=== PATIENT | male | born 1965 | race Caucasian/White ===

== ENCOUNTER → 2022-05-30 | Outpatient (CLI) | payer SELFPAY ==
--- NOTE | 2022-05-30 14:16 | ECHOD_ITS ---
Reason For Study: AFIB Procedure This was a 2D Doppler, Color Flow transthoracic echocardiogram. Exam performed in department. Left Ventricle Normal LV size. Left ventricular systolic function is normal. The estimated ejection fraction is 55 %. Normal diastology for age. No regional wall motion abnormalities noted. Right Ventricle Normal RV size. Normal systolic function. Atria Normal left atrium. Normal right atrium. Mitral Valve Bileaflet diffuse mitral valve thickening. There is mild to moderate mitral annular calcification. Mild (1+) eccentric mitral valve insufficiency. Tricuspid Valve Normal tricuspid valve. Mild tricuspid valve insufficiency. Pulmonary artery systolic pressure is 22 mmHg. Aortic Valve Trisinus/trileaflet aortic valve. Pulmonic Valve Normal pulmonic valve. Great Vessels Normal aortic root. The pulmonary artery is normal size. Normal inferior vena cava. Pericardium/Pleural No pericardial effusion. MMode/2D Measurements & Calculations LVIDd: 5.6 cm IVSd: 0.97 cm Ao root diam: 3.2 cm LVIDs: 4.3 cm LVPWd: 1.2 cm RVDd: 3.3 cm FS: 22.6 % LAV(MOD-bp): 39.3 ml LVAd ap4: 36.8 cm2 SV(MOD-sp4): 56.1 ml LAV(MOD-bp) Indexed: 19.5 ml/m2 LVLd ap4: 9.2 cm LAV(MOD-sp2): 37.7 ml EDV(MOD-sp4): 122.1 ml LAV(MOD-sp4): 38.9 ml EDV(sp4-el): 125.6 ml LVAs ap4: 25.4 cm2 LVLs ap4: 8.3 cm ESV(MOD-sp4): 66.0 ml ESV(sp4-el): 66.4 ml EF(MOD-sp4): 45.9 % EF(sp4-el): 47.1 % SV(sp4-el): 59.1 ml LA A4 area: 15.3 cm2 LA dimension(2D): 3.7 cm RA A4 area: 14.1 cm2 Time Measurements MV dec time: 0.17 sec Doppler Measurements & Calculations MV E max santiaog: 90.2 cm/sec Lat Peak E' Santiago: 9.2 cm/sec Med Peak E' Santiago: 6.7 cm/sec MV A max santiago: 31.6 cm/sec E/E' lat: 9.8 E/E' med: 13.5 MV E/A: 2.8 Ao V2 max: 140.7 cm/sec LV V1 max: 83.6 cm/sec PA V2 max: 75.2 cm/sec Ao max P.9 mmHg LV V1 max P.8 mmHg TR max santiago: 221.8 cm/sec TR max P.7 mmHg ECHO/Echo Complete Interpretation Summary Normal LV size. Left ventricular systolic function is normal. The estimated ejection fraction is 55 %. Normal diastology for age. There is mild to moderate mitral annular calcification. Mild (1+) eccentric mitral valve insufficiency. Ordering Physician: TONNY CORREIA Referring Physician: Jose Jade Performed By: Janelle Vasquez RDCS
== END | disposition home or self-care (01) ==
LOC: CVS 14:14
DX: I48.91 Unspecified atrial fibrillation (principal); E11.9 Type 2 diabetes mellitus without complications; I34.0 Nonrheumatic mitral (valve) insufficiency
CPT/HCPCS: 93306